=== PATIENT | male | born 1980 | race Two or more races ===

== ENCOUNTER 2023-01-04 18:54 | Emergency (ER) | payer SELFPAY ==
[~2023-01-04] VITALS: Ht 154.9 cm; Wt 84.4 kg
[2023-01-04] MEDS ORDERED: HYDROcodone-ACET 5/325MG TAB PO ONE (20:15)
[2023-01-04 23:15] VITALS: BP 136/78; PULSE 87; RESP 18; TEMP 98.7; O2SAT 98
== END 2023-01-04 23:15 | disposition home or self-care (01) ==
LOC: ER 18:54
DX: S93.501A Unspecified sprain of right great toe, initial encounter (principal); W50.1XXA Accidental kick by another person, initial encounter; Y93.89 Activity, other specified; Y92.89 Other specified places as the place of occurrence of the external cause; Y99.8 Other external cause status
CPT/HCPCS: 73630